=== PATIENT | female | born 1970 | race Caucasian/White ===

== ENCOUNTER 2018-08-05 16:37 | Emergency (ER) | payer OTHER ==
[~2018-08-05] VITALS: Wt 75.0 kg
[2018-08-05 21:14] VITALS: BP 120/77; PULSE 97; RESP 15
--- NOTE | 2018-08-05 22:02 | ERD ---
ER Documentation Chief Complaint Chief Complaint cataract sx jun 16, c/o blindness HPI Patient is a 48-year-old female with diabetes who presents with blindness. Please note that freelance interpreter/translator was used for the entire history and physical exam. She said on June 16 she had surgery on her right eye because of "blood in the back of the eyes". She was operated on at [facility]. She was operated previously on the left eye last October. She went to a clinic today because since the surgery on June 16 that she has not been able to see out of the right eye. They were scared that she could not see and so they sent her to the emergency department for further evaluation. She said that she has not been able to see out of that right eye since the surgery. There has been no change. At her follow-up appointment on July 12 she was told that there was no blood in the eye. She does not wear contacts or glasses. She has an appointment scheduled in 6 days for repeat surgery. Upon review of old medical records this is the patient's first visit to the emergency department. ROS All systems reviewed and are negative except as per history of present illness. Allergies Allergies: Coded Allergies: Penicillins (Verified Allergy, Unknown, 08/05/18) PMhx/Soc History of Surgery: Yes (CATARACTS BOTH EYES) Anesthesia Reaction: No Hx Neurological Disorder: No Hx Respiratory Disorders: No Hx Cardiac Disorders: No Hx Psychiatric Problems: No Hx Alcohol Use: No Hx Substance Use: No Hx Tobacco Use: No Smoking Status: Never smoker FmHx Family History: diabetes Physical Exam Vitals Vital Signs Date Temp Pulse Resp B/P (MAP) Pulse Ox O2 O2 Flow FiO2 Time Delivery Rate 08/05/18 97 15 120/77 99 Room Air 21:14 (91) 08/05/18 88 20 135/86 100 Room Air 20:33 (102) 08/05/18 99.0 52 18 167/85 100 18:36 (112) Physical Exam Const: No acute distress Head: Atraumatic Eyes: No obvious hyphema, pupils are equal bilaterally, extraocular movements are intact, only light perception of the right eye unable to count fingers, able to count fingers at 2 feet with the left eye ENT: Normal External Ears, Nose and Mouth. Neck: Full range of motion. No meningismus. Resp: Clear to auscultation bilaterally Cardio: Regular rate and rhythm, no murmurs Abd: Soft, non tender, non distended. Normal bowel sounds Skin: No petechiae or rashes Back: No midline or flank tenderness Ext: No cyanosis, or edema Neur: Awake and alert Psych: Normal Mood and Affect Procedures/MDM Visual acuity was done by the tech. Patient is a 48-year-old female with diabetes who presents with visual problems. The patient has not been able to see out of her right eye since her surgery on June 16. I told her that she needs close follow-up with the [facility] where the surgery was done. She has a surgery coming up in 6 days to try to improve her vision. The patient does not need emergent transfer. The patient can return for any worsening symptoms. Departure Diagnosis: Primary Impression: Vision loss Condition: Fair Patient Instructions: Understanding Vision Problems Referrals: [facility] () [facility] se garcia hecho un examen mdico de control que le indica que no est en екатерина condicin que requiera tratamiento urgente en el Departamento de Emergencia. Un estudio ms profundo y el tratamiento de burgess condicin pueden esperar sin ningn riesgo hasta que usted sea atendida/o en el consultorio de burgess mdico o екатерина clnica. Es responsabilidad suya arreglar екатерина laine para el seguimiento del sonali. MANEJO DE CONDICIONES NO URGENTES EN EL FUTURO 1) Si usted tiene un mdico de atencin primaria: Usted debera llamar a burgess mdico de atencin primaria antes de venir al departamento de emergencia. Despus de las horas de consultorio, burgess doctor o burgess asociado/a est disponible por telfono. El mdico o enfermero de ran en el servicio telefnico puede asesorarle por rosa medio para atender el problema, o sonali contrario se puede programar екатерина laine. 2) Si usted no tiene un mdico de atencin primaria: Llame al mdico o condado institucions de referencia que aparece abajo deedee las horas de consultorio para hacer екатерина laine para que le vean. SI USTED NO PUEDE PAGAR PARA SAMI UN MEDICO puede ir a: [facility] [address] [place] [address] [facility] [address] [place] [address] [facility] [address] [place] [address] [facility] [address] [place] [address] [facility] Hours: Mon - Fri 9:00 AM - 5:00 PM Additional Instructions: Specialist:Usted tiene екатерина condicin mdica que requiere que joseph a un especialista dentro de los prximos 1-2 lao.POR FAVOR,CON BURGESS SEGUIMIENTO DE PRIMARIA PHSICIAN refferal. SI USTED NO TIENE UN MDICO GENERAL Y / O USTED NO PUEDE PAGAR sami a un mdico,los siguientes hernandez RECURSOS sido suministrado a usted. ES BURGESS RESPONSABILIDAD PARA SER VISTOS POR EL ESPECIALISTA: GRISELDA CONTRERAS MD Aug 05, 2018 22:02
== END 2018-08-05 21:20 | disposition home or self-care (01) ==
LOC: E/R 16:37
DX: H54.7 Unspecified visual loss (principal); E11.9 Type 2 diabetes mellitus without complications
CPT/HCPCS: 99282

== ENCOUNTER 2018-11-04 16:42 | Emergency (ER) | payer OTHER ==
[~2018-11-04] VITALS: Ht 162.6 cm; Wt 78.2 kg
[~2018-11-04 16:42] MED LIST: CIPR500T4 PO; PHEN-538 PO
[2018-11-04 16:46] VITALS: Ht 162.6 cm; Wt 78.2 kg
--- NOTE | 2018-11-04 16:49 | EN ---
Date/Time of Note Date/Time of Note DATE: 11/04/18 TIME: 16:48 ER Progress Note Quick RME note: Medical screening exam was initiated and lab/imaging studies were ordered. Patient will be seen in ED 2 by another provider. HPI: 48-year-old female who presents the ER for concerns of dysuria and urinary frequency for the last 3 days. Patient has no fevers or chills. Orders placed: Urine dip, urine ERIK GUNN PA-C Nov 04, 2018 16:49
[2018-11-04] MEDS ORDERED: LIDOCAINE 1% (MDV) 20 ML INJ SC ONE (18:00)
[2018-11-04] MEDS ORDERED: CEFTRIAXONE 1 GM INJ IM ONE (18:00)
[2018-11-04 18:24] VITALS: BP 92/58; PULSE 66; RESP 18
--- NOTE | 2018-11-20 06:44 | ERD ---
ER Documentation Chief Complaint Chief Complaint painful urination x3 days HPI 48-year-old female who presents the ER for concerns of dysuria and urinary frequency for the last 3 days. Patient has no fevers or chills. Symptoms are moderate severity and intermittent. No medication taken for relief of symptoms. No other symptoms reported currently. ROS All systems reviewed and are negative except as per history of present illness. Medications Home Meds Active Scripts Phenazopyridine Hcl* (Pyridium*) 200 Mg Tab, 200 MG PO TID PRN for URINARY PAIN, #6 TAB Prov:DEVON CONTI PA-C 11/04/18 Ciprofloxacin Hcl* (Ciprofloxacin Hcl*) 500 Mg Tablet, 500 MG PO BID for 7 Days, TAB Prov:DEVON CONTI PA-C 11/04/18 Allergies Allergies: Coded Allergies: Penicillins (Verified Allergy, Unknown, 08/05/18) PMhx/Soc History of Surgery: Yes (CATARACTS BOTH EYES) Anesthesia Reaction: No Hx Neurological Disorder: No Hx Respiratory Disorders: No Hx Cardiac Disorders: No Hx Psychiatric Problems: No Hx Miscellaneous Medical Probl: No Hx Alcohol Use: No Hx Substance Use: No Hx Tobacco Use: No Smoking Status: Never smoker FmHx Family History: No diabetes Physical Exam Physical Exam Const: No acute distress Head: Atraumatic Eyes: Normal Conjunctiva ENT: Normal External Ears, Nose and Mouth. Neck: Full range of motion. No meningismus. Resp: Clear to auscultation bilaterally Cardio: Regular rate and rhythm, no murmurs Abd: Soft, non tender, non distended. Normal bowel sounds Skin: No petechiae or rashes Back: No midline or flank tenderness Ext: No cyanosis, or edema. No CVA tenderness. Neur: Awake and alert Psych: Normal Mood and Affect Results 24 hrs Laboratory Tests Test 11/04/18 17:09 11/04/18 17:11 POC Beta HCG, Qualitative NEGATIVE Bedside Urine pH (LAB) 5.0 Bedside Urine Protein (LAB) 1+ Bedside Urine Glucose (UA) 0.1% Bedside Urine Ketones (LAB) Negative Bedside Urine Blood 2+ Bedside Urine Nitrite (LAB) Negative Bedside Urine Leukocyte Esterase (L 2+ Current Medications Medications Dose Sig/Jolynn Start Time Status Last (Trade) Ordered Route PRN Stop Time Admin Dose Reason Admin Ceftriaxone 1 gm ONCE ONCE 11/04/18 DC 11/04/18 Sodium IM 18:00 18:03 (Rocephin) 11/04/18 18:01 Lidocaine 20 ml ONCE ONCE 11/04/18 DC 11/04/18 (Xylocaine SC 18:00 18:03 1% (Mdv) 20 11/04/18 18:01 ml) Procedures/MDM This is a 48-year-old female presents with uncomplicated urinary tract infection. No evidence of Ruddy nephritis, ascending infection, acute surgical abdomen, sepsis, meningitis, or other emergent process. Patient is stable and appropriate for further outpatient management with prescriptions. She is advised to return to the department immediately for new, worsening, or concerning symptoms. She was in agreement with the diagnosis and the plan. Departure Diagnosis: Primary Impression: UTI (urinary tract infection) Condition: Fair Patient Instructions: Understanding Urinary Tract Infections (UTIs) Additional Instructions: Call your primary care doctor TOMORROW for an appointment during the next 1-2 days.See the doctor sooner or return here if your condition worsens before your appointment time. DEVON CONTI PA-C Nov 20, 2018 06:44
== END 2018-11-04 18:25 | disposition home or self-care (01) ==
LOC: FTE 16:42
DX: N39.0 Urinary tract infection, site not specified (principal)
CPT/HCPCS: 81003; 81025; J0696; Z7610; 96372